=== PATIENT | female | born 1980 | race Caucasian/White ===

== ENCOUNTER → 2024-09-29 | Outpatient (CLI) | payer MEDICAID, SELFPAY ==
--- NOTE | 2024-09-29 14:30 | XR_ITS ---
Examination: CT brain head without contrast. CT brain head with intravenous contrast 2-D sagittal coronal reconstructions Date and time of exam:September 29, 2024, 1546 hours INDICATIONS: Multiple falls in the last year, chronic headaches 24 years CTDI: vol (mGy):107 DLP: (mGycm):2001 Technique: Multiple CT axial sections of the brain have been obtained, 5 mm slice thickness, pre and post 50 cc [id number] 2-D sagittal, coronal reconstructions have been obtained Low dose protocols were performed. One or more of the following dose reduction techniques were used; automated exposure control, adjustment of the mA and/or KV according to patient size, use of iterative reconstruction technique. Findings: No significant ventricular enlargement. Intra-axial or extra-axial hemorrhage density is not seen. No mass effect or midline shift Basal cisterns are not remarkable. Fourth ventricle is midline. Cranial vault intact. No abnormal contrast enhancement Impression: Negative for acute hemorrhage, mass effect or midline shift
== END | disposition home or self-care (01) ==
PROVIDERS: Referring Provider Nurse Practitioner Family; Visit Provider Nurse Practitioner Family
DX: R29.6 Repeated falls (principal); R51.9 Headache, unspecified; A53.9 Syphilis, unspecified
CPT/HCPCS: 70470; A4649; Q9967